=== PATIENT | female | born 1980 | race Caucasian/White ===

== ENCOUNTER 2020-12-23 20:50 | Emergency (ER) | payer OTHER ==
[~2020-12-23] VITALS: Ht 167.6 cm; Wt 64.0 kg
[~2020-12-23 20:50] MED LIST: AMBIEN10 MG PO; FIORICET 50-301 EACH PO; FIORICET 50-321 EACH PO; IBUPROFEN800 MG PO; LEXAPRO10 MG PO; METOPROLOL SUCC25 MG PO; PERCOCET 5-3251 EACH PO; PREDNISONE10 MG; PRILOSEC20 MG PO; TOPAMAX100 MG; ULTRAM50 MG
[2020-12-23] MEDS ORDERED: CEPHALEXIN500 MG PO (21:47)
== END 2020-12-23 22:06 | disposition home or self-care (01) ==
LOC: ED 20:50
DX: H60.11 Cellulitis of right external ear (principal); I10 Essential (primary) hypertension; J45.909 Unspecified asthma, uncomplicated; Z88.0 Allergy status to penicillin; Z88.8 Allergy status to other drugs, medicaments and biological substances; Z88.5 Allergy status to narcotic agent; Z88.2 Allergy status to sulfonamides; Z79.899 Other long term (current) drug therapy
CPT/HCPCS: 99283

== ENCOUNTER 2021-08-14 18:56 | Emergency (ER) | payer OTHER ==
[~2021-08-14] VITALS: Ht 167.6 cm; Wt 64.0 kg
[~2021-08-14 18:56] MED LIST changes: +CEPHALEXIN500 MG PO
--- NOTE | 2021-08-15 18:54 | EKG ---
[facility] [address] [facility] [place], [place] [address] Signed Sinus tachycardia Nonspecific T wave abnormality Abnormal ECG No previous ECGs available Confirmed by RAMOS BRADLEY DO ([id number]) on 08/15/2021 6:54:23 PM Electronically Signed By: RAMOS BRADLEY DO 08/15/21 1854 PATIENT NAME: SAMANTA MELGOZA Electrocardiogram DATE OF : 78 PHYSICIAN: RAMOS BRADLEY DO REPORT #: [id number] REPORT IS CONFIDENTIAL AND NOT TO BE RELEASED WITHOUT AUTHORIZATION
== END 2021-08-14 20:00 | disposition left against medical advice (07) ==
LOC: ED 18:56
DX: Z53.21 Procedure and treatment not carried out due to patient leaving prior to being seen by health care provider (principal)
CPT/HCPCS: 71045; 80053; 83735; 84484; 85025; 93005; 93010

== ENCOUNTER 2022-04-30 20:12 | Emergency (ER) | payer OTHER ==
[~2022-04-30] VITALS: Ht 167.6 cm; Wt 64.0 kg
[2022-04-30] MEDS ORDERED: DOXYCYCLINE HY100 MG PO (21:56)
== END 2022-04-30 22:08 | disposition home or self-care (01) ==
LOC: ED 20:12
DX: S51.851A Open bite of right forearm, initial encounter (principal); Z23 Encounter for immunization; I10 Essential (primary) hypertension; J45.909 Unspecified asthma, uncomplicated; Z88.8 Allergy status to other drugs, medicaments and biological substances; Z88.0 Allergy status to penicillin; Z88.2 Allergy status to sulfonamides; Z79.899 Other long term (current) drug therapy; W54.0XXA Bitten by dog, initial encounter
CPT/HCPCS: 73090; 90471; 90714; 99283-25; A9270; J1170; Q0163

== ENCOUNTER 2022-07-12 16:43 | Emergency (ER) | payer OTHER ==
[~2022-07-12] VITALS: Ht 167.6 cm; Wt 67.1 kg
[~2022-07-12 16:43] MED LIST changes: +DOXYCYCLINE HY100 MG PO; +LATUDA20 MG PO
[2022-07-12] MEDS ORDERED: METOPROLOL SUCC25 MG PO (21:21)
--- NOTE | 2022-07-13 20:37 | EKG ---
[facility] [address] [facility] [place], [place] [address] Signed Normal sinus rhythm Normal ECG When compared with ECG of 11-MAY-2022 15:49, No significant change was found Confirmed by KIMMIE WORRELL MD ([id number]) on 07/13/2022 8:36:47 PM Electronically Signed By: IKMMIE WORRELL MD 07/13/222036 PATIENT NAME: SAMANTA MELGOZA Electrocardiogram DATE OF : 78 PHYSICIAN: KIMMIE WORRELL MD REPORT #: [id number] REPORT IS CONFIDENTIAL AND NOT TO BE RELEASED WITHOUT AUTHORIZATION
== END 2022-07-12 23:39 | disposition home or self-care (01) ==
LOC: ED 16:43
DX: I10 Essential (primary) hypertension (principal); F41.9 Anxiety disorder, unspecified; R00.0 Tachycardia, unspecified; Z88.0 Allergy status to penicillin; Z88.2 Allergy status to sulfonamides; Z88.8 Allergy status to other drugs, medicaments and biological substances; Z79.899 Other long term (current) drug therapy
CPT/HCPCS: 36415; 80053; 83735; 84484; 85025; 87502; 93005; 93010; J2060; U0003

== ENCOUNTER 2024-06-02 14:56 | Emergency (ER) | payer OTHER ==
[~2024-06-02] VITALS: Ht 167.6 cm; Wt 84.4 kg
[~2024-06-02 14:56] MED LIST changes: +AMOX TR-K CLV1 EAC1 PO; +ATOMOXETINE HCL25 MG PO; +HYDROCODON-ACE1 EA10 PO; +HYDROXYZINE HCL25 MG PO; +LOSARTAN POTASS25 MG PO; +METOPROLOL SUCC50 MG PO; +OLMESARTAN MEDO20 MG PO; +ORAJEL 3X MOUT5.1 GM MM
[2024-06-02] MEDS ORDERED: HYDROCHLOROTH12.5 MG PO (15:10)
[2024-06-02] MEDS ORDERED: BUSPIRONE HCL15 MG PO (15:10)
[2024-06-02] MEDS ORDERED: SODIUM CHLORIDE 0.9% 1,000 ML IV PRN (16:00)
[2024-06-02 16:21] LABS: BASOPHILS 0.8 % (0-2); EOSINOPHILS 0.8 % (0-6); HEMATOCRIT 37.2 % (35.0-50.0); HEMOGLOBIN 12.7 g/dL (12.0-18.0); LYMPHOCYTES 17.9 % (24-44); MCH 29.7 (27-36); MCHC 34.1 g/dl (30-36); MCV 86.9 fl (81-99); MONOCYTES 5.3 % (0-12); NEUTROPHILS 75.2 % (39-80); PLATELET COUNT 331 K/uL (140-440); RBC 4.27 M/ul (4.3-5.7); RDW 13.6 (10.5-15.0)
[2024-06-02 16:44] LABS: ALBUMIN 3.7 g/dL (3.4-5.0); ALKALINE PHOSPHATASE 76 U/L (46-116); ALT (SGPT) 46 U/L (14-59); ANION GAP 10.3 (7-21); AST (SGOT) 25 U/L (15-37); BILIRUBIN, TOTAL 0.3 ng/dL (0.2-1.0); BUN/CREATININE RATIO 19.35 (6.0-28.6); CALCIUM 9.1 mg/dL (8.5-10.1); CARBON DIOXIDE 30 mmol/L (21-32); CHLORIDE 102 mmol/L (98-107); CREATININE, SERUM 0.93 mg/dL (0.55-1.02); GLOMERULAR FILTRATION RATE,EST 77 mL/min (>60); MAGNESIUM 1.7 mg/dL (1.8-2.4); POTASSIUM 3.3 mmol/L (3.5-5.1); PROTEIN, TOTAL 7.4 g/dL (6.4-8.2); UREA NITROGEN 18 mg/dL (7-18)
[2024-06-02 17:26] LABS: AMPHETAMINES, URINE NEGATIVE (NEGATIVE); BARBITURATES, URINE NEGATIVE (NEGATIVE); BENZODIAZEPINE, URINE NEGATIVE (NEGATIVE); BUPRENORPHINE, URINE NEGATIVE (NEGATIVE); CANNABINOID, URINE NEGATIVE (NEGATIVE); COCAINE, URINE NEGATIVE (NEGATIVE); ECSTASY, URINE NEGATIVE (NEGATIVE); FENTANYL, URINE NEGATIVE (NEGATIVE); METHADONE, URINE NEGATIVE (NEGATIVE); OPIATES, URINE NEGATIVE (NEGATIVE); OXYCODONE, URINE NEGATIVE (NEGATIVE); PHENCYCLIDINE, URINE NEGATIVE (NEGATIVE)
[2024-06-02] MEDS ORDERED: MAGNESIUM SULFATE 2 GM/50 ML BAG IV ONE (18:15)
[2024-06-02] MEDS ORDERED: POTASSIUM CHLORIDE 10 MEQ TABCR PO ONE (18:15)
[2024-06-02 19:26] VITALS: BP 134/86
--- NOTE | 2024-06-03 21:01 | EKG ---
[facility] [address] [facility] [place] [address] Signed Sinus tachycardia Nonspecific T wave abnormality Abnormal ECG No previous ECGs available Confirmed by Jason Espinoza MD ([id number]) on 06/03/2024 9:01:30 PM Electronically Signed By: JASON ESPINOZA DO 06/03/242100 PATIENT NAME: SAMANTA MELGOZA Electrocardiogram DATE OF : 78 PHYSICIAN: JASON ESPINOZA DO REPORT #: [id number] REPORT IS CONFIDENTIAL AND NOT TO BE RELEASED WITHOUT AUTHORIZATION
== END 2024-06-02 19:27 | disposition home or self-care (01) ==
LOC: ED 14:56
PROVIDERS: Emergency Medicine
DX: R55 Syncope and collapse (principal); E87.6 Hypokalemia; E83.42 Hypomagnesemia; I10 Essential (primary) hypertension; J45.909 Unspecified asthma, uncomplicated; F41.9 Anxiety disorder, unspecified; Z88.8 Allergy status to other drugs, medicaments and biological substances; Z88.0 Allergy status to penicillin; Z88.2 Allergy status to sulfonamides; Z88.5 Allergy status to narcotic agent; Z79.899 Other long term (current) drug therapy
CPT/HCPCS: 36415; 71045; 80053; 80307; 83735; 84484; 85025; 85379; 93005; 93010; 96361; 96365; 99284-25; A9270; J3475; J7030